=== PATIENT | female | born 1965 | race Caucasian/White ===

== ENCOUNTER → 2022-08-02 09:17 | Outpatient (BNVA) | payer OTHER, SELFPAY | PROVIDERS: PCP Family Medicine; Visit Provider Family Medicine | DX: E03.9 Hypothyroidism, unspecified (principal); J45.40 Moderate persistent asthma, uncomplicated; L21.9 Seborrheic dermatitis, unspecified; L82.1 Other seborrheic keratosis; W57.XXXA Bitten or stung by nonvenomous insect and other nonvenomous arthropods, initial encounter | CPT/HCPCS: 80053; 80061; 84443; 85025 ==

== ENCOUNTER → 2023-12-19 11:36 | Outpatient (BNVA) | payer OTHER, SELFPAY | PROVIDERS: PCP Family Medicine; Visit Provider Emergency Medicine | DX: J98.8 Other specified respiratory disorders (principal); B97.89 Other viral agents as the cause of diseases classified elsewhere | CPT/HCPCS: 87400; 87426 ==

== ENCOUNTER → 2024-05-26 13:20 | Outpatient (BNVA) | payer OTHER, SELFPAY | PROVIDERS: PCP Family Medicine; Visit Provider Nurse Practitioner | DX: R06.00 Dyspnea, unspecified (principal); R05.9 Cough, unspecified; Q25.46 Tortuous aortic arch; Q79.1 Other congenital malformations of diaphragm; J43.2 Centrilobular emphysema; D71 Functional disorders of polymorphonuclear neutrophils | CPT/HCPCS: 71046 ==

== ENCOUNTER 2024-05-30 10:01 | Outpatient (CLI) | payer OTHER, SELFPAY ==
--- NOTE | 2024-05-30 10:06 | XR_ITS ---
WS: [id number] XR chest 2V* [id number] REASON FOR EXAM: J45.901 - Unspecified asthma with (acute) exacerbation FINDINGS: The lungs are mildly hyperexpanded with flattening of the hemidiaphragms and expansion of the anterior clear space. The density in the left lower mid lung field on the PA view appears less well- defined and somewhat less dense which may indicate a resolving inflammatory process. The chest is otherwise unchanged compared to the previous examination of 05/26/2024. XR/XR chest 2V* [id number] IMPRESSION: Possibly resolving focal inflammatory process in the left lower lung. Recommend follow-up chest x-ray in 4 to 6 weeks to confirm resolution.
== END 2024-05-30 10:02 | disposition home or self-care (01) ==
PROVIDERS: PCP Nurse Practitioner; Visit Provider Nurse Practitioner
DX: J45.901 Unspecified asthma with (acute) exacerbation (principal); J98.4 Other disorders of lung; R91.8 Other nonspecific abnormal finding of lung field
CPT/HCPCS: 71046

== ENCOUNTER → 2024-06-18 15:35 | Outpatient (BNVA) | payer OTHER, SELFPAY | PROVIDERS: PCP Nurse Practitioner; Visit Provider Nurse Practitioner | DX: J45.901 Unspecified asthma with (acute) exacerbation (principal) | CPT/HCPCS: 71046; 85025 ==

== ENCOUNTER 2024-06-25 16:15 | Outpatient (CLI) | payer OTHER, SELFPAY ==
--- NOTE | 2024-06-25 16:30 | CTR_ITS ---
PROCEDURE INFORMATION: Exam: CT Chest With Contrast; Diagnostic Exam date and time: 06/25/2024 4:48 PM Age: 58 years old Clinical indication: Abnormal findings; Abnormal radiologic exam of lung or chest; Solitary pulmonary nodule, nodule in left lung base; Additional info: R91.1 - solitary pulmonary nodule, nodule in left lung base TECHNIQUE: Imaging protocol: Diagnostic computed tomography of the chest with contrast. Radiation optimization: All CT scans at this facility use at least one of these dose optimization techniques: automated exposure control; mA and/or kV adjustment per patient size (includes targeted exams where dose is matched to clinical indication); or iterative reconstruction. Contrast material: OMNIPAQUE 350; Contrast volume: 100 ml; Contrast route: INTRAVENOUS (IV); COMPARISON: CR XR chest 2V* [id number] 06/18/2024 3:39 PM RADIATION DOSE METRICS: Total DLP (mGy-cm): 268.13 FINDINGS: Thyroid: Thyroid appears atrophic. Lungs: Subtle mosaic attenuation in the upper lobes bilaterally. Subsegmental atelectasis in the right middle lobe and lingula. 9 mm nodular opacity within the lingula is vicinity of the atelectasis. Small cluster of micro nodules with tree-in-bud nodularity in the left lower lobe (centered on series 4, image 35). 5 mm subpleural nodule in the posterior basal right lower lobe on image 49. No focal consolidation. Pleural spaces: Unremarkable. No pneumothorax. No pleural effusion. Heart: Unremarkable. No cardiomegaly. No pericardial effusion. Lymph nodes: Unremarkable. No enlarged lymph nodes. Vasculature: Unremarkable. No aortic aneurysm. Bones/joints: Unremarkable. No acute fracture. Soft tissues: Unremarkable. CT/CT chest w con* [id number] IMPRESSION: 1. 9 mm nodule in the lingula with surrounding subsegmental atelectasis/scarring. This nodule is likely atelectatic in nature. However, follow-up is recommended to document stability. For both low risk and high risk patients, consider CT Chest at 3 months, PET/CT, or biopsy. (Reference: Luisa) 2. Small cluster of micro nodules with tree-in-bud nodularity in the left lower lobe likely represent sequela of an atypical infectious/inflammatory process. 3. Subtle mosaic attenuation in the upper lobes is nonspecific but can be seen with air trapping from chronic small airways disease among other etiologies. 4. Atrophic thyroid. REFERENCES: Luisa H, et al. Guidelines for Management of Incidental Pulmonary Nodules Detected on CT Images: From the Fleischner Society 2017. Radiology. 2017;284(1):228-243.
[2024-06-25 16:44] LABS: Blood Urea Nitrogen 18 mg/dL (8-23); Glomerular Filtration Rate 41.8 mL/min (90-130)
[2024-06-25] MEDS: iohexol 350 mg/mL 500 mL Btl (per mL) IV (17:12)
== END 2024-06-25 16:16 | disposition home or self-care (01) ==
LOC: RAD 16:16
PROVIDERS: PCP Nurse Practitioner; Visit Provider Nurse Practitioner
DX: R91.1 Solitary pulmonary nodule (principal); R91.8 Other nonspecific abnormal finding of lung field; R93.89 Abnormal findings on diagnostic imaging of other specified body structures
CPT/HCPCS: 71260; 82565; 84520

== ENCOUNTER → 2024-09-25 14:01 | Outpatient (BNVA) | payer OTHER, SELFPAY | PROVIDERS: PCP Nurse Practitioner; Visit Provider Nurse Practitioner | DX: M79.641 Pain in right hand (principal); M19.041 Primary osteoarthritis, right hand | CPT/HCPCS: 73110; 73130 ==

== ENCOUNTER → 2024-11-03 11:09 | Outpatient (BNVA) | payer OTHER, SELFPAY | PROVIDERS: PCP Nurse Practitioner; Visit Provider Nurse Practitioner | DX: E03.9 Hypothyroidism, unspecified (principal) | CPT/HCPCS: 84443 ==

== ENCOUNTER → 2025-02-02 09:00 | Outpatient (BNVA) | payer OTHER, SELFPAY | PROVIDERS: PCP Nurse Practitioner; Visit Provider Nurse Practitioner | DX: E03.9 Hypothyroidism, unspecified (principal) | CPT/HCPCS: 80053; 84443 ==